=== PATIENT | female | born 1965 | race Caucasian/White ===

== ENCOUNTER 2018-04-03 11:35 | Emergency (ER) | payer MEDICAID ==
[~2018-04-03] VITALS: Ht 152.4 cm; Wt 119.1 kg
[2018-04-03 11:39] VITALS: Ht 152.4 cm; Wt 119.1 kg
[2018-04-03] MEDS ORDERED: MOBIC7.5 MG PO (11:41)
[2018-04-03] MEDS ORDERED: ADIPEX-P37.5 MG PO (11:41)
[2018-04-03] MEDS ORDERED: LISINOPRIL5 MG PO (11:41)
[2018-04-03] MEDS ORDERED: VALIUM10 MG PO (11:42)
[2018-04-03 13:49] VITALS: BP 108/59
== END 2018-04-03 13:51 | disposition home or self-care (01) ==
LOC: D.ER 11:35
DX: S93.401A Sprain of unspecified ligament of right ankle, initial encounter (principal); X58.XXXA Exposure to other specified factors, initial encounter; Y93.89 Activity, other specified; Y92.89 Other specified places as the place of occurrence of the external cause

== ENCOUNTER 2018-10-25 16:01 | Emergency (ER) | payer MEDICAID ==
[~2018-10-25] VITALS: Ht 152.4 cm; Wt 114.5 kg
[~2018-10-25 16:01] MED LIST: ADIPEX-P37.5 MG PO; LISINOPRIL5 MG PO; MOBIC7.5 MG PO; VALIUM10 MG PO
[2018-10-25 16:04] VITALS: Ht 152.4 cm; Wt 114.5 kg
[2018-10-25] MEDS ORDERED: TORADOL10 MG PO (17:30)
[2018-10-25] MEDS ORDERED: PREDNISONE20 MG PO (17:30)
[2018-10-25 18:26] VITALS: BP 150/79
== END 2018-10-25 18:27 | disposition home or self-care (01) ==
LOC: D.ER 16:01
DX: M79.672 Pain in left foot (principal)